=== PATIENT | male | born 2005 | race Two or more races ===

== ENCOUNTER → 2024-03-02 | Outpatient (CLI) | payer MEDICAID, SELFPAY ==
[2024-03-02 12:31] LABS: Misc Send Out* See Sep Rpt
[2024-03-07 06:58] LABS: Levetiracetam (Keppra)* 4.5 mcg/mL (6.0-46.0)
== END | disposition home or self-care (01) ==
PROVIDERS: PCP Family Medicine; Referring Provider Psychiatry & Neurology Neurology with Special Qualifications in Child Neurology; Visit Provider Psychiatry & Neurology Neurology with Special Qualifications in Child Neurology
DX: G40.919 Epilepsy, unspecified, intractable, without status epilepticus (principal); Z91.148 Patient's other noncompliance with medication regimen for other reason
CPT/HCPCS: 36415; 80177; 80346; G0480

== ENCOUNTER 2024-03-07 09:18 | Emergency (ER) | payer MEDICAID, SELFPAY ==
[2024-03-07 09:26] VITALS: PULSE 120; O2SAT 96; BMI 33.3
[2024-03-07 09:40] VITALS: BP 128/80; PULSE 87; RESP 20; TEMP 36.4; O2SAT 94
--- NOTE | 2024-03-07 09:58 | PD.EDSEIZ ---
ED Seizures RME/HPI General Chief Complaint: Seizure Stated Complaint: SEIZURE Arrival date/time: 03/07/24 09:18 RME / HPI RME / HPI Narrative: 18 year old male with history of seizures and multiple ED visits for abdominal pain/nausea/vomiting presents to the ED BIBA from home for seizure today. Per girlfriend, they were laying in bed when patient began seizing, described as tonic-clonic and lasting 1 minute. States the patient rolled off the bed landing on carpeted javier. Girlfriend states they administered an emergency seizure intranasal medication with some improvement. Denies fevers, chills, chest pain, cough, shortness of breath, abdominal pain, nausea, vomiting, diarrhea, or urinary symptoms. Denies pain to his head or headache. States last seizure was in 2022. Currently on Keppra, Fycomba, Valproic Acid and reports compliance with all of his medications. Patient admits to smoking marijuana, no other drug use. Related Data Home Medications ?Medication ?Instructions ?Recorded ?Confirmed valproic acid 250 mg capsule 750 mg PO BID 06/23/20 10/22/22 levetiracetam 1,000 mg tablet 1,200 mg PO BID 09/10/20 10/22/22 perampanel 6 mg tablet (Fycompa) 6 mg PO HS 12/19/21 10/22/22 Previous Rx's ?Medication ?Instructions ?Recorded ondansetron 4 mg disintegrating 4 mg PO Q8H PRN nausea and 10/17/22 tablet vomiting #15 tabs omeprazole 40 mg capsule,delayed 40 mg PO QDAY #30 caps 10/20/22 release promethazine 25 mg tablet 25 mg PO TID PRN nausea and 10/20/22 vomiting #30 tabs ondansetron 4 mg disintegrating 4 mg PO Q8H PRN nausea and 10/21/22 tablet vomiting #14 tabs ondansetron 4 mg disintegrating 4 mg PO Q6H PRN nausea and 03/07/24 tablet vomiting #10 tabs Allergies Allergy/AdvReac Type Severity Reaction Status Date / Time zonisamide Allergy Intermediate Gastrointestinal Verified 10/23/22 18:53 Upset Review of Systems Review of Systems Narrative Review of Systems: GEN: No fever, no chills, no weight loss EYES: No discharge, no visual changes, no pain HEENT: No ear pain, no congestion, no sore throat PULM: No shortness of breath, no cough, no congestion CV: No chest pain, no dyspnea on exertion, no palpitations GI: No nausea, no vomiting, no diarrhea, no pain, no constipation : No frequency, no urgency and no dysuria MUSC/SKEL No joint pain, no back pain SKIN: No rash NEURO: No weakness, no headache, +seizure Past Medical History Past Medical History NEUROLOGIC: Positive Neurological Disorders, Seizures and Epilepsy GASTROINTESTINAL: Positive Ulcer GENITOURINARY: Positive Genitourinary Disorders and Renal Disease Family History FAMILY HISTORY: Negative Family Psychiatric Problems, Family Respiratory Disorders, Family Cardiac Disorders, Family Gastrointestinal Problems, Family Cancer, Family Surgery or Family Anesthesia Reaction Surgical History SURGICAL: Negative Pacemaker, Endocrine Surgery, Abdominal Surgery, Nephrectomy or Neurologic Surgery Social History SMOKING STATUS: Never smoker SUBSTANCE USE: marijuana ED Exam Narrative Physical exam: GENERAL APPEARANCE: Well hydrated, well nourished, in no acute distress. VITALS: All vitals were reviewed and the pulse ox is 94% on room air which is normal according to my interpretation. HEENT: Normocephalic, atramatic, EOMI, EACs are patent. There is no bulge or retraction. Throat without erythema or exudate. Moist oromucosa. No jaundice NECK: Supple, no JVD or bruits. CARDIOVASCULAR: Heart regular without S3-S4 or murmur. No rubs or gallops. LUNGS/CHEST: Clear to auscultation bilaterally. No rales, rhonchi, or wheezing. Normal inspection. ABDOMEN: Soft, nontender, with normal bowel sounds. No pulsatile masses. No rebound, rigidity, or guarding. No incarcerated hernia. Normal inspection and palpation. EXTREMITIES: Normal inspection and palpation. No edema, clubbing, or cyanosis. Intact CSM SKIN: Warm and dry without rashes. Normal inspection. MUSCULOSKELETAL: Normal inspection. No gross deformity, full ROM all extremities NEURO: Alert and oriented x3. Cranial nerves II through XII grossly intact. There are no other motor or sensory deficits noted. PSYCHIATRIC: Normal mood and affect. No psychosis Course Quality Measures none Orders Category Date Time Status CT Screening NOW Care 03/07/24 12:[address] abdomen pelvis w con Stat Exams 03/07/24 12:[address] head/brain wo con Stat Exams 03/07/24 11:04 Completed CBC Stat Lab 03/07/24 11:05 Completed Comprehensive Metabolic Panel Stat Lab 03/07/24 11:05 Completed Drug Screen,Urine Stat Lab 03/07/24 16:50 Completed Urinalysis Stat Lab 03/07/24 16:50 Completed LORazepam [Ativan Inj] Med 03/07/24 14:22 Discontinued 2 mg IVP X1 STA Morphine Inj Med 03/07/24 12:22 Discontinued 4 mg IVP X1 ONE Ondansetron Inj [Zofran Inj] Med 03/07/24 12:22 Discontinued 4 mg IV X1 ONE Sodium Chloride 0.9% 1000 ml [Ns] 1,000 ml Med 03/07/24 12:22 Discontinued IV 999 mls/hr levETIRAcetam INJ [Keppra Inj] Med 03/07/24 11:04 Discontinued 1,000 mg IVP X1 ONE Vital Signs Vital signs: Vital Signs Temperature 97.6 F 03/07/24 09:40 Pulse Rate 87 03/07/24 09:40 Respiratory Rate 20 03/07/24 09:40 Blood Pressure 128/80 03/07/24 09:40 Pulse Oximetry (%) 94 L 03/07/24 09:40 Oxygen Delivery Method Room Air 03/07/24 09:40 Seizure MDM Narrative MDM Narrative:: I, Kasandra Tobar, am scribing for and in the presence of Dr. Douglas. 1215 p.m., the patient's nurse notified me that the patient is in a lot of abdominal pain. Upon my arrival the patient is in pain diaphoretic and nausea and dry heaving. Abdominal exam is still nontender. He had a history of using marijuana. And had a similar pain in the past. So in addition to CT of the brain I am adding CT abdomen and pelvic with IV contrast. I am also giving the patient IV fluid and morphine and Zofran. Later on he also given some Ativan to calm him down. The patient also received a dose of Keppra IV 1 g. WBC count is 19,000. I think that is secondary to nausea and vomiting. CMP is negative. UA is negative. U tox is pending. CT brain was done and was reviewed by and interpreted by me as follow: No bleed. No mass. No shifting. No swelling. Normal ventricle. Normal bones. Normal skull. CT abdomen and pelvic was reviewed and repeat interpreted by me as follow: No obstruction. No dilated loops of small bowel or large bowel. No free air. No stone. No foreign body. No free air. 5:40 PM, I spoke to and discussed with Dr. Arellano, resident of Dr. Kinsey Wilson, hospitalist on-call. He will assess the patient for admission. 5:50 PM I spoke to and discussed with the patient himself. And the patient absolutely refused to be admitted. He said he is feeling better and wants to go home. And his girlfriend is with him. She appeared to be very supportive of him. Patient data External records reviewed:: [facility] previous records (I reviewed ED visit on 10/22/2022) and EMS form Clinical information provided by:: patient and EMS Social determinants that could affect healthcare access:: substance use (Marijuana ) Patient has the following chronic illnesses:: Seizures How is presenting disease/condition affected by chronic disease/condition?: exacerbated by Evaluation data The following diagnostics were reviewed and interpreted by me:: lab results and radiology exam(s) Lab and/or radiology exams considered but not ordered:: None Interpretation Summary: Ordering Physician: Duane Douglas MD Date of Service: 03/07/24 Procedure(s): CT abdomen pelvis w con Accession Number(s): [id number] cc: Liana King NP; Ty Zepeda MD; Duane Douglas MD~ Examination: CT abdomen with intravenous contrast CT pelvis with intravenous contrast 2-D coronal reconstructions 2-D sagittal reconstructions Date and time of exam:March 07, 2024 1440 hours INDICATIONS: Abdominal pain with nausea vomiting onset today COMPARISON: October 19, 2022. CTDI: vol (mGy) 10.7 DLP: (mGycm) 677 Technique: Multiple axial sections of the abdomen and pelvis have been obtained. 64 slice high-resolution scanner used. 3 mm axial sections have been obtained, post intravenous injection 60 cc [id number] 2-D sagittal, coronal reconstructions obtained. Low dose protocols were performed. One or more of the following dose reduction techniques were used; automated exposure control, adjustment of the mA and/or KV according to patient size, use of iterative reconstruction technique. Findings: No focal liver or splenic lesions No gallstones No pancreatic or adrenal mass No renal or ureteral calculi Normal appendix No bowel obstruction No diverticulitis Urinary bladder intact No prostatomegaly IMPRESSION: No renal or ureteral calculi, no hydronephrosis Normal appendix No bowel obstruction diverticulitis or free air Dictated By: Ty Zepeda MD Signed By: <Electronically signed by Ty Zepeda MD in OV> 03/07/24 1505 Ordering Physician: Duane Douglas MD Date of Service: 03/07/24 Procedure(s): CT head/brain wo con Accession Number(s): [id number] cc: Liana King MECHANICAL SYSTEM TECHNICIAN; Ty Zepeda MD; Duane Douglas MD~ Examination: CT brain head without contrast. 2-D sagittal coronal reconstructions Date and time of exam:March 07, 2024 1125 hours INDICATIONS: Seizures today, patient fell with injury to head, head pain CTDI: vol (mGy):52.6 DLP: (mGycm):1070 Technique: Multiple CT axial sections of the brain have been obtained, 5 mm slice thickness. Contrast has not been administered. 2-D sagittal, coronal reconstructions have been obtained Low dose protocols were performed. One or more of the following dose reduction techniques were used; automated exposure control, adjustment of the mA and/or KV according to patient size, use of iterative reconstruction technique. Findings: No significant ventricular enlargement. Intra-axial or extra-axial hemorrhage density is not seen. No mass effect or midline shift Basal cisterns are not remarkable. Fourth ventricle is midline. Cranial vault intact. Impression: Negative for acute hemorrhage, mass effect or midline shift Advise clinical correlation follow-up accordingly Dictated By: Ty Zepeda MD Signed By: <Electronically signed by Ty Zepeda MD in OV> 03/07/24 1157 Medications / Prescriptions Medications or Prescriptions considered but not ordered:: None Medication administrations:: Medication Administration History Discontinued Medications Sodium Chloride (Ns) 1,000 mls @ 999 mls/hr IV .Q1H1M ONE Stop: 03/07/24 13:22 Last Infusion: 03/07/24 14:00 Dose: Infused Documented By: Admin: 03/07/24 12:37 Dose: 999 mls/hr Documented By: LINDY Levetiracetam (Levetiracetam Inj 100 Mg/Ml Vial 5ml) 1,000 mg IVP X1 ONE Stop: 03/07/24 11:05 Last Admin: 03/07/24 12:41 Dose: 1,000 mg Documented By: LINDY Lorazepam (Lorazepam 2 Mg/Ml Vial) 2 mg IVP X1 STA Stop: 03/07/24 14:23 Last Admin: 03/07/24 14:34 Dose: 2 mg Documented By: LINDY Morphine Sulfate (Morphine Sulf Inj 10 Mg/Ml Vial) 4 mg IVP X1 ONE Stop: 03/07/24 12:23 Last Admin: 03/07/24 12:40 Dose: 4 mg Documented By: LINDY Ondansetron HCl (Ondansetron Inj 2 Mg/Ml Inj 2 Ml) 4 mg IV X1 ONE; Protocol Stop: 03/07/24 12:23 Last Admin: 03/07/24 12:38 Dose: 4 mg Documented By: LINDY See above Consultations Consultation(s) initiated? (list below): No Diagnosis Seizure Differential Diagnosis: intractable seizure disorder, focal seizure, generalized seizure and epileptic seizure Most likely diagnosis given after review of the tests above:: Recurrent seizure Abdominal pain Vomiting Admission Indicated Admission indicated?: not indicated Admission Request Was there a request for admission?: No Disposition Plan Disposition Plan: Discharge Discharge Attestation Discharge Attestation: The patient and all family members were given an opportunity to ask questions and understood the discharge instructions. Discharge instructions specifically effects, indications for sooner follow up or return to the emergency department, and the expected course of current diagnosis. Patient condition: Stable Discharge Plan Plan Patient Disposition: HOME (Self Care) Disposition Comment: Stable and improved Prescriptions/Referrals Prescriptions/Med Rec: New ondansetron 4 mg tablet,disintegrating 4 mg PO Q6H PRN (Reason: nausea and vomiting) Qty: 10 0RF No Action levetiracetam 1,000 mg tablet 1,200 mg PO BID Patient Comments: take 1 tablet by mouth twice a day valproic acid 250 mg Capsule 750 mg PO BID Fycompa 6 mg Tablet 6 mg PO HS ondansetron 4 mg tablet,disintegrating 4 mg PO Q8H PRN (Reason: nausea and vomiting) Qty: 15 0RF ondansetron 4 mg tablet,disintegrating 4 mg PO Q8H PRN (Reason: nausea and vomiting) Qty: 14 0RF omeprazole 40 mg capsule,delayed release(DR/EC) 40 mg PO QDAY Qty: 30 0RF promethazine 25 mg tablet 25 mg PO TID PRN (Reason: nausea and vomiting) Qty: 30 0RF Referrals: Liana King, MECHANICAL SYSTEM TECHNICIAN [Primary Care Provider] - In 1 week Problem List Clinical Impression: Recurrent seizures, Vomiting, Abdominal pain Patient/Caregiver Discharge Instructions Education Materials: Abdominal Pain, ED Seizure, Recurrent (Adult), ED Vomiting (Adult) Additional Instructions: We offered to admit you but you did not want to stay in the hospital. Rest. No driving. No diving. No ladder. No elena. Please continue the medication for seizure. Follow-up with your medical doctor in 3 days. Return to nearest ER if any problem. Print Language: Australian Stand Alone Forms: Bruna Award Info., Patient Portal Info Letter
[2024-03-07 10:56] VITALS: BP 127/77; PULSE 89; RESP 19; O2SAT 96
--- NOTE | 2024-03-07 11:04 | XR_ITS ---
Examination: CT brain head without contrast. 2-D sagittal coronal reconstructions Date and time of exam:March 07, 2024 1125 hours INDICATIONS: Seizures today, patient fell with injury to head, head pain CTDI: vol (mGy):52.6 DLP: (mGycm):1070 Technique: Multiple CT axial sections of the brain have been obtained, 5 mm slice thickness. Contrast has not been administered. 2-D sagittal, coronal reconstructions have been obtained Low dose protocols were performed. One or more of the following dose reduction techniques were used; automated exposure control, adjustment of the mA and/or KV according to patient size, use of iterative reconstruction technique. Findings: No significant ventricular enlargement. Intra-axial or extra-axial hemorrhage density is not seen. No mass effect or midline shift Basal cisterns are not remarkable. Fourth ventricle is midline. Cranial vault intact. Impression: Negative for acute hemorrhage, mass effect or midline shift Advise clinical correlation follow-up accordingly
[2024-03-07 11:12] LABS: Basophils # (Auto) 0.1 Thou/mm3 (0.0-0.2); Basophils % (Auto) 0 % (0-2.5); Eosinophils # (Auto) 0.1 Thou/mm3 (0.0-0.5); Eosinophils % (Auto) 0 % (0-10); Hemoglobin 15.8 g/dL (13.5-16.0); Immature Granulocytes % (Auto) 0 % (0-0); Immature Granulocytes Auto 0.06 Thou/mm3 (0.00-0.00); Lymphocytes # (Auto) 1.5 Thou/mm3 (1.0-4.8); Lymphocytes % (Auto) 8 % (10-50); Mean Corpuscular HGB Conc 34.3 g/dl (31.0-37.0); Mean Corpuscular Volume 87 fL (80-100); Monocytes # (Auto) 1.5 Thou/mm3 (0.0-0.8); Monocytes % (Auto) 8 % (0-12); Neutrophils # (Auto) 15.7 Thou/mm3 (1.8-7.7); Neutrophils % (Auto) 83 % (37-80); Nucleated Red Blood Cell % 0 /100 WBC (0); Platelet Count 224 Thou/mm3 (140-440); RDW Standard Deviation 38.2 fL (35.1-43.9); Red Blood Count 5.27 Miln/mm3 (4.50-5.90); White Blood Count 18.9 Thou/mm3 (4.5-11.0)
[2024-03-07 11:42] LABS: Alanine Aminotransferase 12 U/L (10-49); Albumin, Serum 5.1 gm/dL (3.5-5.0); Albumin/Globulin Ratio 1.7 (1.2-2.2); Alkaline Phosphatase 81 U/L (46-116); Anion Gap 9 (7-16); Aspartate Amino Transferase 16 U/L (0-34); BUN/Creatinine Ratio 11 Ratio (12-20); Bilirubin,Total 0.4 mg/dL (0.3-1.2); Blood Urea Nitrogen 11 mg/dL (9-23); Calcium 10.2 mg/dL (8.3-10.6); Calcium (Corrected) 10.2 mg/dL (8.5-10.1); Carbon Dioxide 23.8 mMol/L (20.0-31.0); Chloride 104 mMol/L (98-107); Glucose 111 mg/dL (74-106); Osmolality,Calculated 274 (275-295); Potassium 3.9 mMol/L (3.4-5.1); Sodium 137 mMol/L (136-145); Total Protein 8.1 gm/dL (5.7-8.2); eGFR > 60 See Note
--- NOTE | 2024-03-07 12:22 | XR_ITS ---
Examination: CT abdomen with intravenous contrast CT pelvis with intravenous contrast 2-D coronal reconstructions 2-D sagittal reconstructions Date and time of exam:March 07, 2024 1440 hours INDICATIONS: Abdominal pain with nausea vomiting onset today COMPARISON: October 19, 2022. CTDI: vol (mGy) 10.7 DLP: (mGycm) 677 Technique: Multiple axial sections of the abdomen and pelvis have been obtained. 64 slice high-resolution scanner used. 3 mm axial sections have been obtained, post intravenous injection 60 cc [id number]-370 2-D sagittal, coronal reconstructions obtained. Low dose protocols were performed. One or more of the following dose reduction techniques were used; automated exposure control, adjustment of the mA and/or KV according to patient size, use of iterative reconstruction technique. Findings: No focal liver or splenic lesions No gallstones No pancreatic or adrenal mass No renal or ureteral calculi Normal appendix No bowel obstruction No diverticulitis Urinary bladder intact No prostatomegaly IMPRESSION: No renal or ureteral calculi, no hydronephrosis Normal appendix No bowel obstruction diverticulitis or free air
[2024-03-07] MEDS: SODIUM CHLORIDE 0.9% 1000 ML 1,000 ML 999 ML IV (12:37)
[2024-03-07] MEDS: ONDANSETRON INJ 2 MG/ML INJ 2 ML 4 MG IV (12:38)
[2024-03-07] MEDS: MORPHINE SULF INJ 10 MG/ML VIAL 4 MG IVP (12:40)
[2024-03-07] MEDS: levETIRAcetam INJ 100 MG/ML VIAL 5ML 1000 MG IVP (12:41)
[2024-03-07] MEDS: LORazepam 2 MG/ML VIAL IVP (14:34)
[2024-03-07 15:37] VITALS: BP 143/84; PULSE 84; RESP 17; TEMP 36.7; O2SAT 98
[2024-03-07 17:18] LABS: Collection Type, Urine Clean Catch
[2024-03-07 17:47] LABS: Bilirubin,Urine Negative (Negative); Blood,Urine Trace (Negative); Clarity,Urine Clear (Clear/Hazy); Color,Urine Lt-Yellow (Lt Yel-Yel); Glucose, Urine Negative (Negative); Ketones,Urine 1+ (Negative); Leukocyte Esterase,Urine Negative (Negative); Nitrite,Urine Negative (Negative); PH,Urine 6.5 (5.0-7.0); Protein,Urine Negative (Neg - Trace); RBC,Urine 3 /hpf (0-3); Squamous Epithelial Cell,Urine < 1 /hpf (0-5); Urobilinogen,Urine Negative mg/dL (0.0-1.0); WBC,Urine 1 /hpf (0-5)
[2024-03-07 17:48] LABS: Specific Gravity,Urine 1.025 (1.001-1.035)
[2024-03-07 17:55] LABS: Amphetamine/Methamp Scrn,U Negative (Negative); Barbiturate Screen,Urine Negative (Negative); Benzodiazepines Screen,Urine Positive (Negative); Benzoylecgonine Screen, Ur Negative (Negative); Fentanyl Screen,Urine Negative (Negative); Opiate Screen,Urine Positive (Negative); THC Screen,Urine Positive (Negative)
--- NOTE | 2024-03-07 17:57 | PD.RESEVENT ---
Documentation for date of: 03/07/24 Event Note Event Note: Received call from ED to admit patient due to breakthrough seizures which was controlled with medications and later developed nausea, vomiting, however ED called again patient is refusing to be admitted to the hospital and will be discharged from the ED. Raudel Bejarano MD PGY-1
--- NOTE | 2024-03-07 18:08 | PC.NURSE ---
PATIENT ENCOURAGED TO STAY BY PROVIDER OVERNIGHT FOR OBSERVATION BUT PATIENT STATES HE WILL BE OKAY TO GO HOME.
--- NOTE | 2024-03-07 18:20 | PC.NURSE ---
PATIENT STATES PAIN 9/10. ER PROVIDER INFORMED AND RECEIVED VERBAL ORDER FOR 1 MG HYDROMORPHONE.
[2024-03-07 18:25] VITALS: BP 115/81; PULSE 101; RESP 18; TEMP 37.1; O2SAT 98
[2024-03-07] MEDS: HYDROmorphone INJ 2 MG/ML VIAL 1 MG IVP (18:28)
== END 2024-03-07 18:40 | disposition home or self-care (01) ==
PROVIDERS: Emergency Provider Emergency Medicine; PCP Nurse Practitioner Women's Health
DX: G40.909 Epilepsy, unspecified, not intractable, without status epilepticus (principal); S09.90XA Unspecified injury of head, initial encounter; R11.2 Nausea with vomiting, unspecified; R10.9 Unspecified abdominal pain; W06.XXXA Fall from bed, initial encounter
CPT/HCPCS: 36415; 70450; 74177; 80053; 80307; 81001; 85025; 96361; 96374; 96375; 99285; A4649; J1953; J2060; J2270; J2405; J3490; J7030; Q9967

== ENCOUNTER 2024-06-07 15:49 | Emergency (ER) | payer MEDICAID, SELFPAY ==
[2024-06-07 15:50] VITALS: PULSE 102; RESP 18; O2SAT 99; BMI 34.8
[2024-06-07 15:56] VITALS: BP 136/72; PULSE 97; RESP 19; TEMP 36.3; O2SAT 99
--- NOTE | 2024-06-07 15:59 | PD.EDADULT ---
ED General RME/HPI General Chief complaint: Seizure Stated complaint: SEIZURE Time Seen by Provider: 06/07/24 15:56 Arrival date/time: 06/07/24 15:49 RME / HPI RME / HPI narrative: Patient is a 18 years old male with PMH of seizure disorder presented to the ED after witnessed seizure episode at home today. He reports he skip his seizure medications for the last 3 days due to busy schedule at work. He denies any recent trauma, fever, chills, headache, SOB, chest pain, diarrhea. He reports abdominal discomfort and nausea after seizure episode. He denies biting his tongue or had urinary/fecal incontinence. He is followed by neurology in [facility] and did not switch to adult neurologist yet. Related Data Home Medications ?Medication ?Instructions ?Recorded ?Confirmed valproic acid 250 mg capsule 750 mg PO BID 06/23/20 10/22/22 levetiracetam 1,000 mg tablet 1,200 mg PO BID 09/10/20 10/22/22 perampanel 6 mg tablet (Fycompa) 6 mg PO HS 12/19/21 10/22/22 Previous Rx's ?Medication ?Instructions ?Recorded ondansetron 4 mg disintegrating 4 mg PO Q8H PRN nausea and 10/17/22 tablet vomiting #15 tabs omeprazole 40 mg capsule,delayed 40 mg PO QDAY #30 caps 10/20/22 release promethazine 25 mg tablet 25 mg PO TID PRN nausea and 10/20/22 vomiting #30 tabs ondansetron 4 mg disintegrating 4 mg PO Q8H PRN nausea and 10/21/22 tablet vomiting #14 tabs ondansetron 4 mg disintegrating 4 mg PO Q6H PRN nausea and 03/07/24 tablet vomiting #10 tabs Allergies Allergy/AdvReac Type Severity Reaction Status Date / Time zonisamide Allergy Intermediate Gastrointestinal Verified 10/23/22 18:53 Upset Review of Systems Review of Systems Systems Reviewed: All systems reviewed, normal except as documented ED Exam Narrative Physical exam: Gen: Well-developed and well-nourished male. HEENT: NCAT, PERRLA, EOMI, MMM, anicteric conjunctivae. CVS: normal S1 and S2. Regular tachycardia. No M/R/G. Resp: CTA B/L. No rhonchi, rales, crackles or wheezing. Abd: soft, non-tender, non-distended. BS+ in all 4 quadrants. MSK: Good ROM in BUE & BLE. No edema or rash. Neuro: CN II-XII grossly intact. Strength 5/5 in BUE & BLE. Alert and oriented x3, somnolent. Psych: appropriate mood and affect. Course Course Course Narrative: 1600: Keppra 1 g IV x1 given. Quality Measures none Orders Category Date Time Status LORazepam [Ativan Inj] Med 06/07/24 15:58 Active 2 mg IVP Q15M PRN levETIRAcetam INJ [Keppra Inj] Med 06/07/24 15:57 Discontinued 1,000 mg IVP X1 ONE Vital Signs Vital signs: Vital Signs Temperature 97.4 F 06/07/24 15:56 Pulse Rate 97 06/07/24 15:56 Respiratory Rate 19 06/07/24 15:56 Blood Pressure 136/72 H 06/07/24 15:56 Pulse Oximetry (%) 99 06/07/24 15:56 Oxygen Delivery Method Room Air 06/07/24 15:56 [facility] Patient data External records reviewed:: [facility] previous records and EMS form Clinical information provided by:: patient and EMS Social determinants that could affect healthcare access:: other (specify) (busy work schedule) Patient has the following chronic illnesses:: seizure disorder How is presenting disease/condition affected by chronic disease/condition?: caused by Evaluation data The following diagnostics were reviewed and interpreted by me:: other (specify) (none) Lab and/or radiology exams considered but not ordered:: CT head, CBC, CMP, Utox. Interpretation Summary: na Medications Medications considered but not ordered:: na Medication administrations:: Medication Administration History Lorazepam (Lorazepam 2 Mg/Ml Vial) 2 mg IVP Q15M PRN PRN Reason: SEIZURES Stop: 06/12/24 15:57 Discontinued Medications Levetiracetam (Levetiracetam Inj 100 Mg/Ml Vial 5ml) 1,000 mg IVP X1 ONE Stop: 06/07/24 15:58 Last Admin: 06/07/24 16:01 Dose: 1,000 mg Documented By: GM Keppra 1g IV. Consultations Consultation(s) initiated? (list below): No Diagnosis Differential Diagnosis ED Complaint MDM: seizure, status epilepticus, head trauma, meningitis Most likely diagnosis given after review of the tests above:: Seizure Admission Indicated Admission indicated?: not indicated Explain why admission is indicated or not indicated:: Patient had seizure after skipping his home medications, compliance was reinforced and he was recommended to establish adult neurology visits. Admission Request Was there a request for admission?: No Disposition Plan Disposition Plan: Discharge Discharge Attestation Discharge Attestation: The patient and all family members were given an opportunity to ask questions and understood the discharge instructions. Discharge instructions specifically effects, indications for sooner follow up or return to the emergency department, and the expected course of current diagnosis. Patient condition: Stable Medical Decision Making MDM Narrative MDM Narrative: Patient is a 18 years old male with PMH of seizure disorder presented to the ED after witnessed seizure episode at home today. He reports he skip his seizure medications for the last 3 days due to busy schedule at work. He had multiple ED visits because of the same problem of non-compliance. He was explained about improtance of medications. He was monitored in the ED, no reccurent seizures were observed. He is stable for discharge home on the same medications. Differential Diagnosis Differential Diagnosis: seizure, status epilepticus, head trauma, meningitis Discharge Plan Plan Patient Disposition: HOME (Self Care) Patient condition on transfer: Stable Prescriptions/Referrals Prescriptions/Med Rec: No Action levetiracetam 1,000 mg tablet 1,200 mg PO BID Patient Comments: take 1 tablet by mouth twice a day valproic acid 250 mg Capsule 750 mg PO BID Fycompa 6 mg Tablet 6 mg PO HS ondansetron 4 mg tablet,disintegrating 4 mg PO Q8H PRN (Reason: nausea and vomiting) Qty: 15 0RF ondansetron 4 mg tablet,disintegrating 4 mg PO Q8H PRN (Reason: nausea and vomiting) Qty: 14 0RF omeprazole 40 mg capsule,delayed release(DR/EC) 40 mg PO QDAY Qty: 30 0RF promethazine 25 mg tablet 25 mg PO TID PRN (Reason: nausea and vomiting) Qty: 30 0RF ondansetron 4 mg tablet,disintegrating 4 mg PO Q6H PRN (Reason: nausea and vomiting) Qty: 10 0RF Referrals: Choco Cota MD [Physician] - In 1 week Problem List Clinical Impression: Seizure, Non compliance w medication regimen Patient/Caregiver Discharge Instructions Education Materials: ED Seizure, Recurrent (Adult) Additional Instructions: Follow up with PCP and neurology within 1 week. Referral for adult neurologist was provided. Continue home medications as prescribed until you follow up with neurologist. Return to the ED if symptoms recur or worsen. Print Language: Thai Stand Alone Forms: Bruna Award Info., Patient Portal Info Letter Attestation Attestation I, Jose Juan Crespo MD, have reviewed the history, exam, and assessment of the patient. I have evaluated the patient independently and agree with the plan of care documented by [ ]. All diagnostic studies were reviewed and discussed. I confirm the diagnosis as documented by the Resident. I was present during the Medical Decision Making for this patient. The patient's plan of care was created between myself and the Resident and consistent with our discussion of the patient's case. Note I saw this patient when there patient was first put into room 8 he was alert awake smiling. He admits to being noncompliant with his medications. He is also aware that taking his medicines would be beneficial and harmful when he has seizures and breakthrough events like today he was loaded with his Keppra he was observed for an hour and a half or so he had no further seizure activity. Reevaluation he spine his girlfriend's in the room she also was understands that he needs to take his medicines and not miss doses. They were advised and in
[2024-06-07] MEDS: levETIRAcetam INJ 100 MG/ML VIAL 5ML 1000 MG IVP (16:01)
[2024-06-07 18:04] VITALS: BP 131/72; PULSE 68; RESP 18; TEMP 36.9; O2SAT 97
== END 2024-06-07 18:39 | disposition home or self-care (01) ==
LOC: SERX 17:09
PROVIDERS: Emergency Provider Emergency Medicine
DX: R56.9 Unspecified convulsions (principal); Z91.148 Patient's other noncompliance with medication regimen for other reason
CPT/HCPCS: 96374; 99284; J1953